=== PATIENT | female | born 1975 | race Caucasian/White ===

== ENCOUNTER 2023-10-13 10:44 | Emergency (ER) | payer OTHER ==
[2023-10-13 11:05] VITALS: TEMP 99; BMI 23.7
[2023-10-13 12:06] LABS: HCG,QUALITATIVE URINE Negative
[2023-10-13 12:11] LABS: EPITHELIAL CELLS 0-5 /hpf
[2023-10-13] MEDS ORDERED: ACETAMINOPHEN 325 MG TABLET (FP) ONE (12:23)
[2023-10-13] MEDS ORDERED: METHOCARBAMOL 500 MG TABLET ONE (12:23)
[2023-10-13] MEDS: METHOCARBAMOL 500 MG TABLET PO ONE (12:31)
[2023-10-13] MEDS: ACETAMINOPHEN 325 MG TABLET (FP) PO ONE (12:31)
[2023-10-13 13:29] VITALS: BP 110/88; PULSE 84; RESP 16
== END 2023-10-13 13:39 | disposition home or self-care (01) ==
LOC: FER 10:44
DX: M54.50 Low back pain, unspecified (principal)
CPT/HCPCS: 72100-TC-FY; 81003; 81015; 84703; 99283-25